=== PATIENT | male | born 1940 | race Caucasian/White ===

== ENCOUNTER 2019-01-10 06:43 | Inpatient (IN) | payer MEDICARE, OTHER ==
[2019-01-10] VITALS (8 sets, daily range): BP systolic 94–146; BP diastolic 45–79
[~2019-01-10] VITALS: Ht 172.7 cm; Wt 102.5 kg
[~2019-01-10 06:43] MED LIST: ACETAMINOPHEN325 M1; ACETAMINOPHEN325 M1 PO; ADULT LOW DOSE81 MG PO; APAP500 PO; ASPIRIN EC81 M1; ASPIRIN EC81 M1 PO; BENADRYL25 MG PO; BENICAR HCT 201 EACH PO; BENICAR HCT 401 EACH PO; CIPROFLOXACIN500 M1; CIPROFLOXACIN500 M1 PO; CITRATE OF MAG296 ML PO; COLACE100 MG PO; DIAZEPAM 5 MG5 MG PO; FISH OIL 1,2001 EAC4 PO; FISHOIL; FLAGYL500 MG PO; FLOMAX PO; IRON159 MG; MECLIZINE 25 MG25 M1 PO; MIRALAX255 GM; MIRALAX255 GM PO; MISC; MULTIVITAMINS; MULTIVITAMINS1 EAC7 PO; NORCO 5-325 TA1 EACH; NORVASC 5 MG TAB5 MG PO; OMEPRAZOLE 20 M20 MG; OMEPRAZOLE20 MG PO; PEPCID40 MG PO; PREDNISONE 10 M10 MG; PRILOSEC 20 MG20 MG PO; PROAMATINE5 MG; TAMSULOSIN HCL0.4 MG PO; ULTRAM 50MG TAB50 MG; [UNRECOGNIZED DRUG - OTHER] PO
[2019-01-10] MEDS ORDERED: TOPROL XL100 MG PO (07:22)
[2019-01-10] MEDS ORDERED: STARLIX60 MG PO (07:22)
[2019-01-10] MEDS ORDERED: PROTONIX40 M1 PO (07:23)
[2019-01-10] MEDS ORDERED: LISINOPRIL20 MG PO (07:23)
[2019-01-10] MEDS ORDERED: HYDROCHLOROTH12.5 M1 PO (07:23)
[2019-01-10] MEDS ORDERED: SYNTHROID50 MCG PO (07:23)
[2019-01-10] MEDS ORDERED: NAMENDA 5 MG TAB5 M1 PO (07:24)
[2019-01-10] MEDS ORDERED: METFORMIN HCL500 MG PO (07:24)
[2019-01-10] MEDS ORDERED: FOLBIC RF TABL1 EACH PO (07:25)
[2019-01-10] MEDS ORDERED: SIMVASTATIN40 MG PO ×2 (07:25)
[2019-01-10] MEDS ORDERED: COZAAR 25 MG TA25 M1 PO (07:25)
[2019-01-10] MEDS ORDERED: EXELON1 EAC1 TRANSDERM (07:25)
[2019-01-10 07:28] LABS: HEMATOCRIT 43.5 % (42.0-52.0); HEMOGLOBIN 15.5 gm/dL (14.0-18.0); MCH 32.7 pg (26.0-34.0); MCHC 35.5 g/dL (28.0-37.0); MCV 92.2 fL (80.0-100.0); MPV 8.7 fl. (7.2-11.1); NUCLEATED RBCS 0 /100WBC; PLATELET COUNT* 119 thou/uL (150-400); RBC 4.72 mil/uL (4.50-6.00); RDW-CV 13.5 % (10.5-14.5); WBC 8.5 thou/uL (4.0-11.0)
[2019-01-10 07:40] LABS: INR 1.1; PROTIME 10.9 Seconds (9.20-11.50)
[2019-01-10 07:42] LABS: ANION GAP 9 mmol/L (7-16); BUN 20 mg/dL (7-18); CALCIUM 8.8 mg/dL (8.5-10.1); CHLORIDE 103 mmol/L (98-107); CO2 29 mmol/L (21-32); CREATININE 1.3 mg/dL (0.6-1.3); GLUCOSE 157 mg/dL (70-99); POTASSIUM 3.1 mmol/L (3.5-5.1); SODIUM 141 mmol/L (136-145)
[2019-01-10 07:45] LABS: BE 0.8 mmol/L (-2 to +3); PCO2 34.8 mmHg (35.0-45.0); PO2 67.2 mmHg (75.0-100.0); pH 7.458 (7.340-7.450)
[2019-01-10 07:51] LABS: ALBUMIN 3.5 g/dL (3.4-5.0); ALKALINE PHOSPHATASE 76 U/L (46-116); LIPASE 75 U/L (73-393); SGOT 16 U/L (15-37); SGPT 25 U/L (30-65); TROPONIN-I LEVEL <0.06 ng/mL (<0.06)
[2019-01-10 07:53] LABS: URINE BILIRUBIN NEGATIVE (Negative); URINE BLOOD NEGATIVE (Negative); URINE CLARITY CLEAR; URINE COLOR YELLOW; URINE GLUCOSE-RANDOM NEGATIVE (Negative); URINE KETONES NEGATIVE (Negative); URINE LEUKOCYTES-REFLEX NEGATIVE (Negative); URINE NITRITE-REFLEX NEGATIVE (Negative); URINE PROTEIN NEGATIVE (Negative); URINE SPECIFIC GRAVITY 1.025 (1.005-1.030); URINE UROBILINOGEN 0.2 E.U./dl (0.2-1.0)
[2019-01-10 08:00] LABS: ABSOLUTE LYMPHOCYTES 0.3 thou/uL (0.8-5.3); ABSOLUTE MONOCYTES 0.3 thou/uL (0.0-1.2); ABSOLUTE NEUTROPHILS 7.9 thou/uL (1.6-8.1); PLATELET ESTIMATE DECREASED
[2019-01-10 08:01] LABS: ANISOCYTOSIS 1+; POIKILOCYTOSIS 1+
[2019-01-10] MEDS ORDERED: PRESERVISION A1 EACH PO (09:19)
[2019-01-10] MEDS ORDERED: SUPER B-50 COM1 EACH PO (09:19)
[2019-01-10] MEDS ORDERED: PROTONIX 20 MG20 M1 PO (09:20)
[2019-01-10] MEDS ORDERED: NEURONTIN 300300 M1 PO (09:20)
[2019-01-10] MEDS ORDERED: POTASSIUM20 PO ×2 (09:20)
[2019-01-10] MEDS ORDERED: FLOMAX0.4 MG PO (09:20)
[2019-01-10] MEDS ORDERED: CHLORTHALIDONE25 MG PO (09:21)
--- NOTE | 2019-01-10 10:15 | EKG ---
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: [place] : 1940 Requested By: Zari Velez Order Number: [id number] MD: Baldomero Dowling Measurements Intervals Jelm Rate: 107 P: -65 SC: 202 QRS: -19 QRSD: 100 T: -30 QT: 327 QTc: 437 Interpretive Statements Sinus tachycardia with first-degree AV block ST depression, consider ischemia Compared to ECG 05/27/2013 07:53:28 Sinus rhythm no longer present ST segment depression to Electronically Signed On 01-10-2019 10:14:49 CDT by Baldomero Dowling [email or web address] <ELECTRONICALLY SIGNED> By: Baldomero Dowling MD, [facility] 01/10/19 [id number] [phone] Baldomero Dowling MD, [facility] /EPI
--- NOTE | 2019-01-10 15:59 | NUR ---
PT ADMITTED TO ROOM 228 AROUND 1000 THIS AM. REFER TO ASSESSMENT. VSS. SATS WNL ON RA. IVF INFUSING WITHOUT DIFFICULTY. MAG AND POTASSIUM REPLACED THIS SHIFT. SR ON THE MONITOR. NO OTHER CONCERNS AT THIS TIME. CLWR. WCTM.
[2019-01-11 04:00] VITALS: BP 104/55
[2019-01-11 04:38] LABS: ABSOLUTE LYMPHOCYTES 1.6 thou/uL (0.8-5.3); ABSOLUTE MONOCYTES 0.6 thou/uL (0.0-1.2); ABSOLUTE NEUTROPHILS 9.9 thou/uL (1.6-8.1); BASOPHILS 0.1 %; EOSINOPHILS 0.3 %; LYMPHOCYTES 12.9 %; MCH 32.6 pg (26.0-34.0); MCHC 34.9 g/dL (28.0-37.0); MCV 93.5 fL (80.0-100.0); MONOCYTES 4.9 %; MPV 8.8 fl. (7.2-11.1); NUCLEATED RBCS 0 /100WBC; PLATELET COUNT* 98 thou/uL (150-400); POLYS 81.8 %; RBC 3.64 mil/uL (4.50-6.00); RDW-CV 13.4 % (10.5-14.5); WBC 12.1 thou/uL (4.0-11.0)
[2019-01-11 04:48] LABS: HEMOGLOBIN 11.9 gm/dL (14.0-18.0)
[2019-01-11 04:56] LABS: CALCIUM 8.2 mg/dL (8.5-10.1); CREATININE 1.3 mg/dL (0.6-1.3); POTASSIUM 3.1 mmol/L (3.5-5.1)
--- NOTE | 2019-01-11 05:37 | NUR ---
PATIENT PROGRESSING TOWARDS GOALS: VSS ON ROOM AIR. PATIENT REPORTS HE IS CLOSE TO BEING ABLE TO EXPECTORATE SPUTUM THROUGH COUGHING. ENCOURAGE TO DRINK ADEQUATE AMOUNTS OF WATER TO HELP THIN MUCOUS. PATIENT WAS UNABLE TO SLEEP THROUGHOUT SHIFT DESPITE ATTEMPTS TO PROMOTE REST AND COMFORT, STATES "IT'S HARD TO SLEEP IN A BED THAT'S NOT MY OWN." VSS ON ROOM AIR. CALL LIGHT WITHIN REACH
[2019-01-11 08:50] VITALS: BP 105/53
--- NOTE | 2019-01-11 09:30 | NUR ---
ASSUMED CARE AFTER REPORT. A&OX4, ABLE TO COMMUNICATE NEEDS TO STAFF. 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 O2 SAT 94% RA. NO C/O PAIN, SOA, N/V OR OTHER DISTRESS. UP AD KWAME IN ROOM TO BATHROOM. APPROPRIATE USE OF CALL LIGHT. HOURLY ROUNDING FOR SAFETY AND PATIENT NEEDS.
[2019-01-11 11:39] VITALS: BP 129/71
--- NOTE | 2019-01-11 11:49 | NUR ---
MET WITH PT, AND DTR TO DISCUSS HOME SITUATION/DC PLANNING PT LIVE WITH . HE IS INDEPENDENT AND ACTIVE. USES NO EQUIPMENT, HASN'T HAD HH. HE FOLLOWS WITH DR CASTILLO. DENIES NEEDS OTHER THAN A SLEEPING PILL, DR WANG MADE AWARE. WILL FOLLOW
--- NOTE | 2019-01-11 15:00 | NUR ---
CALLED FAST FOOD SUPERVISOR FOR ASSISTANCE WITH PLACING NEW IV SITE AFTER CURRENT IV SITE INFILTRATED. NO REDNESS OR EDEMA BUT PATIENT C/O PAIN ON MEDIAL SIDE OF FOREARM NEAR IV SITE. FAST FOOD SUPERVISOR OBTAINED NEW SITE.
[2019-01-11 19:55] VITALS: BP 119/53
[2019-01-11 23:06] LABS: GLYCOHEMOGLOBIN (HGB A1C) 5.5 % (4.8-5.6)
[2019-01-12 04:17] VITALS: BP 132/67
[2019-01-12 04:25] LABS: ABSOLUTE EOSINOPHILS 0.1 thou/uL (0.0-0.7); ABSOLUTE LYMPHOCYTES 0.8 thou/uL (0.8-5.3); ABSOLUTE MONOCYTES 0.5 thou/uL (0.0-1.2); ABSOLUTE NEUTROPHILS 7.6 thou/uL (1.6-8.1); BASOPHILS 0.2 %; EOSINOPHILS 1.4 %; HEMATOCRIT 35.6 % (42.0-52.0); HEMOGLOBIN 12.5 gm/dL (14.0-18.0); MCH 32.6 pg (26.0-34.0); MPV 8.8 fl. (7.2-11.1); NUCLEATED RBCS 0 /100WBC; PLATELET COUNT* 104 thou/uL (150-400); POLYS 84.4 %; RBC 3.83 mil/uL (4.50-6.00); RDW-CV 13.6 % (10.5-14.5)
[2019-01-12 04:31] LABS: CALCIUM 8.3 mg/dL (8.5-10.1); CREATININE 1.1 mg/dL (0.6-1.3); MAGNESIUM 1.8 mg/dL (1.8-2.4); POTASSIUM 3.5 mmol/L (3.5-5.1)
--- NOTE | 2019-01-12 04:36 | NUR ---
PATIENT PARTIALLY PROGRESSING TOWARDS GOALS: VSS ON ROOM AIR. ABLE TO EXCRETE MUCOUS MORE EFFECTIVELY, NOT OBSERVED BY THIS RN BUT PATIENT REPORTS IT IS "DARK IN COLOR". PATIENT TO HAVE REPEAT CHEST XRAY THIS AM, VERBALIZES UNDERSTANDING. PATIENT COMPLAINING OF INABILITY TO VOID THIS MORNING. BLADDER SCAN REVEALS 850CC. PHYSICIAN PAGED AND ORDERS OBTAINED. DIFFICULTY PLACING PANTOJA CATHETER. 16F COUDE SUCCESSFULLY PLACED. MINIMAL BLOOD NOTED IN URINE. PATIENT REPORTS RELIEF AFTER CATHETER PLACED. CALL LIGHT WITHIN REACH
[2019-01-12 07:30] VITALS: BP 129/78
[2019-01-12] MEDS ORDERED: MUCINEX600 MG PO (10:05)
[2019-01-12] MEDS ORDERED: LEVAQUIN 500 M500 M2 PO (10:05)
[2019-01-12 12:00] VITALS: BP 123/87
[2019-01-12 13:42] VITALS: BP 123/87
== END 2019-01-12 14:15 | disposition home or self-care (01) | DRG 871 ==
LOC: M.ERS 06:43 → M.2W 08:24 → M.TBA-ER 08:24 → M.2W 09:55
PROVIDERS: Emergency Medicine; Internal Medicine; Personal Emergency Response Attendant; ADMIT Family Medicine
DX: A41.9 Sepsis, unspecified organism (principal); J96.01 Acute respiratory failure with hypoxia; J15.6 Pneumonia due to other Gram-negative bacteria; R65.20 Severe sepsis without septic shock; K21.9 Gastro-esophageal reflux disease without esophagitis; N18.3 Chronic kidney disease, stage 3 (moderate); I12.9 Hypertensive chronic kidney disease with stage 1 through stage 4 chronic kidney disease, or unspecified chronic kidney disease; E87.6 Hypokalemia; N40.1 Benign prostatic hyperplasia with lower urinary tract symptoms; R33.8 Other retention of urine; E83.42 Hypomagnesemia; Z96.653 Presence of artificial knee joint, bilateral; Z87.891 Personal history of nicotine dependence; Z90.49 Acquired absence of other specified parts of digestive tract; Z79.899 Other long term (current) drug therapy

== ENCOUNTER → 2019-02-27 | Outpatient (CLI) | payer MEDICARE, OTHER ==
[~2019-02-27] MED LIST changes: +CHLORTHALIDONE25 MG PO; +COZAAR 25 MG TA25 M1 PO; +EXELON1 EAC1 TRANSDERM; +FLOMAX0.4 MG PO; +FOLBIC RF TABL1 EACH PO; +HYDROCHLOROTH12.5 M1 PO; +LEVAQUIN 500 M500 M2 PO; +LISINOPRIL20 MG PO; +METFORMIN HCL500 MG PO; +MUCINEX600 MG PO; +NAMENDA 5 MG TAB5 M1 PO; +NEURONTIN 300300 M1 PO; +POTASSIUM20 PO; +PRESERVISION A1 EACH PO; +PROTONIX 20 MG20 M1 PO; +PROTONIX40 M1 PO; +SIMVASTATIN40 MG PO; +STARLIX60 MG PO; +SUPER B-50 COM1 EACH PO; +SYNTHROID50 MCG PO; +TOPROL XL100 MG PO
== END ==
LOC: M.RAD 10:51
DX: K44.9 Diaphragmatic hernia without obstruction or gangrene (principal); J18.9 Pneumonia, unspecified organism

== ENCOUNTER → 2019-06-25 | Outpatient (CLI) | payer MEDICARE, OTHER | LOC: M.RAD 11:59 | DX: M19.031 Primary osteoarthritis, right wrist (principal); M19.041 Primary osteoarthritis, right hand ==

== ENCOUNTER → 2020-10-15 | Outpatient (CLI) | payer OTHER ==
[2020-10-15 11:21] LABS: ABSOLUTE EOSINOPHILS 0.1 thou/uL (0.0-0.7); ABSOLUTE LYMPHOCYTES 1.5 thou/uL (0.8-5.3); ABSOLUTE MONOCYTES 0.4 thou/uL (0.0-1.2); ABSOLUTE NEUTROPHILS 4.4 thou/uL (1.6-8.1); BASOPHILS 0.3 %; EOSINOPHILS 1.1 %; HEMATOCRIT 40.9 % (42.0-52.0); HEMOGLOBIN 14.3 gm/dL (14.0-18.0); LYMPHOCYTES 23.8 %; MCH 32.7 pg (26.0-34.0); MCV 93.6 fL (80.0-100.0); MONOCYTES 6.5 %; MPV 7.8 fl. (7.2-11.1); NUCLEATED RBCS 0 /100WBC; PLATELET COUNT* 146 thou/uL (150-400); POLYS 68.3 %; RBC 4.37 mil/uL (4.50-6.00); RDW-CV 13.3 % (10.5-14.5); WBC 6.4 thou/uL (4.0-11.0)
[2020-10-15 11:38] LABS: ALBUMIN 3.7 g/dL (3.4-5.0); ALKALINE PHOSPHATASE 81 U/L (46-116); ANION GAP 5 mmol/L (7-16); BUN 21 mg/dL (7-18); CALCIUM 8.5 mg/dL (8.5-10.1); CHLORIDE 107 mmol/L (98-107); CO2 30 mmol/L (21-32); GLUCOSE 83 mg/dL (70-99); POTASSIUM 3.9 mmol/L (3.5-5.1); SGOT 27 U/L (15-37); SGPT 26 U/L (30-65); SODIUM 142 mmol/L (136-145); TOTAL BILIRUBIN 0.5 mg/dL (<0.1-1.0); TROPONIN-I LEVEL <0.06 ng/mL (<0.06)
== END ==
LOC: M.LAB 10:20
PROVIDERS: ATTEND Internal Medicine
DX: R94.31 Abnormal electrocardiogram [ECG] [EKG] (principal); R42 Dizziness and giddiness